=== PATIENT | male | born 1965 | race Caucasian/White ===

== ENCOUNTER 2016-08-29 05:34 | Day surgery (SDC) | payer BC ==
[2016-08-25 10:15] LABS: BASOPHILS 0.6 %; BASOPHILS ABSOLUTE 0.04 10/3/uL (0.0-0.16); EOSINOPHILS 2.2 %; EOSINOPHILS ABSOLUTE 0.16 10/3/uL (0.0-0.53); HEMOGLOBIN 17.1 g/dL (13.6-17.8); IMMATURE GRANULOCYTES 0.1 %; IMMATURE GRANULOCYTES ABSOLUTE 0.01 10/3/uL (0.0-0.11); LYMPHOCYTES 22.2 %; LYMPHOCYTES ABSOLUTE 1.59 10/3/uL (0.67-4.30); MEAN CORPUS HGB CONC 34.9 g/dL (32.0-36.0); MEAN CORPUSCULAR HEMOGLOB 31.3 pg (26.0-34.0); MEAN CORPUSCULAR VOLUME 89.6 fL (80-100); MEAN PLATELET VOLUME 10.4 fL (9.2-13.0); MONOCYTES 8.4 %; NEUTROPHILS 66.5 %; NEUTROPHILS ABSOLUTE 4.75 10/3/uL (2.02-8.40); PLATELET COUNT 175 10/3/uL (150-400); RBC DISTRIBUTION WIDTH 13.7 % (12.0-16.0); RED CELL COUNT 5.47 10/6/uL (4.7-6.1); WHITE BLOOD CELLS 7.2 10/3/uL (4.5-10.5)
[2016-08-25 10:17] LABS: MANUAL DIFF NO %
[2016-08-25 10:28] LABS: BUN (BLOOD UREA NITROGEN) 12 MG/DL (6-23); CHLORIDE, SERUM 107 MMOL/L (96-112); CO2 (CARBON DIOXIDE) 29 MMOL/L (24-34); CREATININE 0.99 MG/DL (0.70-1.30); GFR AFRICAN AMERICAN 100 ML/MIN (>=60); GFR NON AFRICAN AMERICAN 87 ML/MIN (>=60); GLUCOSE, SERUM 94 MG/DL (60-99); POTASSIUM, SERUM 4.3 MMOL/L (3.5-5.3); SODIUM, SERUM 143 MMOL/L (135-148)
--- NOTE | ~2016-08-29 | OP ---
Record Of Operation [facility] [address] [place]. [address] NAME: JORGE VILLA : 61 STATUS : REG [facility] [place] PAT#: [id number] AGE: 51 ADM/REG DATE : 08/29/16 MR#: [id number] REPORT SERV DATE: 08/29/16 DICTATED BY: ROSAS DONIS DATE: 08/29/16 REPORT STATUS : Draft TRANSCRIBED BY: MODBharti DATE: 08/29/16 DATE OF PROCEDURE: 08/29/2016 PREOPERATIVE DIAGNOSIS: Right inguinal hernia. POSTOPERATIVE DIAGNOSIS: Right inguinal hernia, indirect. PROCEDURE: Laparoscopic right inguinal hernia repair with mesh. CHIEF RESIDENT: Héctor Prieto MD. ANESTHETIC: General and local. IV FLUIDS: 550 mL. ESTIMATED BLOOD LOSS: 10 mL. COMPLICATIONS: None. COUNTS: Correct. SPECIMEN: None. DESCRIPTION OF PROCEDURE: The patient was brought to the operating room, placed supine on operating table. Anesthetic was administered and endotracheal intubation achieved. The abdomen was prepped and draped in a standard sterile fashion. A time-out was held. Incision was made just below the umbilicus after administration of local anesthetic. It was carried down to the level of the fascia. The anterior fascia was incised and the rectus muscle was swept laterally. Preperitoneal space was defined. Plan was defined with the oval balloon under laparoscopic visualization. Next, structural balloon was placed and two 5 mm trocars were placed just left of the midline after the administration of local anesthetic. Next, the dissection was undertaken. The cord and its contents were identified traversing to the ring and anterior medial hernia sac was identified and dissected free. Once this was adequately reflected down. A piece of Parietex mesh was cut to the appropriate shape and inserted with coverage centered over the hernia defect. This was secured with a ProTack at Don ligament more anteriorly and anterolateral epigastric vessels. No tacks were placed below the Don ligament. The mesh seemed to be adequately secured and , local anesthetic was administered. The insufflated space was released under visualization and care taken to ensure that the sac did not go behind the mesh. The prosthesis removed and trocars were withdrawn. The infraumbilical incision was closed at the fascia level with 0 Vicryl and all incisions were closed superficially with 4- 0 Monocryl in subcuticular fashion. Sterile bandages were applied. The patient was extubated and transferred to the recovery area in stable condition. Record Of Operation [address] [place]. [address] NAME: JORGE VILLA : 61 STATUS : REG [facility] [place] PAT#: [id number] AGE: 51 ADM/REG DATE : 08/29/16 MR#: [id number] REPORT SERV DATE: 08/29/16 DICTATED BY: ROSAS DONIS DATE: 08/29/16 REPORT STATUS : Draft TRANSCRIBED BY: TRAVIS DATE: 08/29/16 SR/TRAVIS Rosas Donis M.D. / [id number] CC: Rosas Donis M.D. NO PCP
[~2016-08-29 05:34] MED LIST: PRILOSEC OTC20 MG PO
== END 2016-08-29 17:25 | disposition home or self-care (01) ==
LOC: SDC 05:34
PROVIDERS: Specialist
PROC: 0YU54JZ Supplement Right Inguinal Region with Synthetic Substitute, Percutaneous Endoscopic Approach (ICD-10-PCS; principal; 2016-08-29 06:45)
DX: K40.90 Unilateral inguinal hernia, without obstruction or gangrene, not specified as recurrent (principal); E11.9 Type 2 diabetes mellitus without complications; K21.9 Gastro-esophageal reflux disease without esophagitis; E66.9 Obesity, unspecified
CPT/HCPCS: 80048; 82962; 85025; 93005; A9270-GY; C1726; C1781; J0690; J2250; J2270; J2405; J2710; J3010